=== PATIENT | male | born 1945 ===

== ENCOUNTER 2017-04-30 07:44 | Day surgery (SDC) | payer MEDICARE ==
[2017-04-27 12:21] VITALS: BMI 30.1
[2017-04-30] MEDS ORDERED: Midazolam 2 MG/2 ML VIAL ONE (09:09)
[2017-04-30] MEDS ORDERED: Oxycodone/Acetaminophen 5/325 mg Tab PO PRN (09:54)
[2017-04-30] MEDS ORDERED: Sodium Chloride 0.45% 1,000 ML IV SCH (10:00)
[2017-04-30 10:57] VITALS: RESP 18; TEMP 97.6; O2SAT 99
[2017-04-30 11:38] VITALS: BP 154/70; PULSE 68
--- NOTE | 2017-04-30 20:36 | CT ---
PROCEDURE: CT guided left renal biopsy. HISTORY: Renal insufficiency. Proteinuria. Evaluate for SLE. PHYSICIAN(S): Tee Alcantara MD. TECHNIQUE: The relative risks and indications of the procedure were explained to the patient and consent obtained. The patient was placed prone on the CT scanner and preliminary images through the kidneys obtained. Conscious sedation and monitoring were provided throughout the procedure by a nurse. There is a 3.6 cm high attenuation cyst extending exophyticly off the right kidney. Otherwise, the limited noncontrast images of the kidneys are unremarkable. A left posterior approach was selected and the area prepped and draped in the usual sterile fashion. 1% Xylocaine was used to anesthetize the skin and soft tissues. A 17-gauge guiding needle was advanced into the left renal cortex laterally. Its position was confirmed with CT. Using coaxial technique, multiple core biopsies were obtained. The postprocedure images show no evidence of significant hemorrhage. IMPRESSION: 1. CT-guided left renal cortex biopsy as described above.
== END 2017-04-30 12:10 | disposition home or self-care (01) ==
LOC: SDS 07:44
PROVIDERS: ATTEND Radiology Vascular & Interventional Radiology
DX: N10 Acute pyelonephritis (principal); R80.9 Proteinuria, unspecified; N28.9 Disorder of kidney and ureter, unspecified
CPT/HCPCS: 50200; 77012; J2250; J2405; J3010; J7030